=== PATIENT | female | born 1975 | race Caucasian/White ===

== ENCOUNTER 2018-01-29 13:43 | Emergency (ER) | payer BC, OTHER ==
[2018-01-29 20:29] LABS: ADD MAN DIFF? NO
[2018-01-29 20:31] LABS: BASOPHIL # 0.1 10^3/ul (0.0-0.1); BASOPHILS % 0.5 % (0.0-2.0); EOSINOPHILS % 0.2 % (0.0-7.0); HEMATOCRIT 44.7 % (37.0-47.0); HEMOGLOBIN 14.8 g/dl (12.0-16.0); LYMPHOCYTES # 3.4 10^3/ul (0.8-2.9); LYMPHOCYTES % 33.8 % (15.0-51.0); MEAN CORPUSCULAR HEMOGLOBIN 29.1 pg (29.0-33.0); MEAN CORPUSCULAR HGB CONC 33.1 g/dl (32.0-37.0); MEAN PLATELET VOLUME 10.6 fl (7.4-10.4); MONOCYTE # 0.5 10^3/ul (0.3-0.9); MONOCYTES % 4.9 % (0.0-11.0); NEUTROPHILS % 60.4 % (39.0-77.0); PLATELET COUNT 353 10^3/UL (140-415); RED BLOOD COUNT 5.08 10^6/ul (4.20-5.40); RED CELL DISTRIBUTION WIDTH 13.1 % (11.5-14.5)
[2018-01-29] MEDS: ASPIRIN 325 MG TAB PO (20:34)
[2018-01-29 20:49] LABS: ANION GAP 21 (8-16); BLOOD UREA NITROGEN 10 mg/dl (7-20); CARBON DIOXIDE 24 mmol/L (21-31); CHLORIDE 105 mmol/L (97-110); CREATININE 0.73 mg/dl (0.44-1.00); GLUCOSE 111 mg/dl (70-220); SODIUM 146 mmol/L (135-144)
[2018-01-29 21:01] LABS: B-TYPE NATRIURETIC PEPTIDE 31 PG/ML (0-125)
[2018-01-29 21:02] LABS: TROPONIN-I < 0.012 ng/ml (0.00-0.12)
[2018-01-29] MEDS: LORAZEPAM 2 MG INJ IV (21:37)
[2018-01-29] MEDS: LIDOCAINE/MYLANTA 40 ML BTL PO (23:05)
== END 2018-01-30 02:11 | disposition home or self-care (01) ==
LOC: E/R 01-30 02:11
DX: K21.9 Gastro-esophageal reflux disease without esophagitis (principal)
CPT/HCPCS: 36415; 71045; 80048; 83880; 84484; 85025; 93005; 96374; 99285-25